=== PATIENT | female | born 1935 | race Caucasian/White ===

== ENCOUNTER 2017-08-19 13:04 | Inpatient (IN) | payer MEDICARE ==
[~2017-08-19] VITALS: Ht 124.4 cm; Wt 72.1 kg
[2017-08-19] VITALS (7 sets, daily range): BP systolic 74–117; BP diastolic 0–86
--- NOTE | ~2017-08-19 | WRIGHTHP ---
[place], [place] PATIENT HISTORY AND PHYSICAL EXAM NAME: ERIC GIBSON [facility] #: [id number] UNIT #: [id number] ROOM: 408 DOCTOR: JAYSHREE MIJARES MD BIRTHDATE: [birth year] DOS: 08/20/2017 HISTORY OF PRESENT ILLNESS: The patient is an 82-year-old female with a past medical history of: 1. Type 2 diabetes mellitus. 2. Obesity. 3. Chronic gouty arthritis. 4. Benign essential hypertension. 5. History of breast cancer and left mastectomy. 6. COPD. The patient presented to the Emergency Department at [facility] with complaints of shortness of breath and chest congestion and feeling unwell. The patient was found to be in atrial fibrillation with rapid ventricular response. The patient was given intravenous verapamil in the Emergency Department and following this she was started on metoprolol. The patient went back into normal sinus rhythm. There were no complaints of any chest pain. No GI or urinary symptoms otherwise. REVIEW OF SYSTEMS: LUNGS: Some increasing shortness of breath, nasal congestion. CARDIOVASCULAR SYSTEM: No chest pains. No palpitations. GASTROINTESTINAL: No nausea, vomiting, diarrhea or constipation. HOME MEDICATIONS: Allopurinol, amlodipine, hydrochlorothiazide, labetalol, lisinopril, metformin and some multivitamins. ALLERGIES: Known allergies to ASPIRIN. FAMILY HISTORY: Noncontributory. PHYSICAL EXAMINATION: GENERAL: Alert, oriented x 3, in no visible distress, except for obesity. VITAL SIGNS: Blood pressure 115/78, heart rate of 78 beats per minute, breathing 16 times per minute, temperature 98.7 degrees Fahrenheit. HEENT AND NECK: Extraocular movements are intact. Sclerae are anicteric. Oral mucosa is moist and clean. No obvious facial weakness. Neck is supple without any lymphadenopathy. No thyromegaly. No JVD. No carotid arterial bruits. LUNGS: Clear to auscultation. No wheezing. No rhonchi. CARDIOVASCULAR SYSTEM: Heart rate is regular in rate and rhythm. S1 and S2 normally audible. No significant murmur or any other abnormal cardiac sounds. ABDOMEN: Soft, nontender. No obvious organomegaly. Bowel sounds are present. No obvious herniation. EXTREMITIES: Without significant cyanosis or edema. Warm to touch. CENTRAL NERVOUS SYSTEM: Alert and oriented x 3. Cranial nerves II-XII are intact. Speech is normal. The patient is able to move all extremities. Normal muscle strength. Deep tendon reflexes are equal on both sides. Plantars were downgoing. IMPRESSION: [place], [place] PATIENT HISTORY AND PHYSICAL EXAM NAME: ERIC GIBSON UNIT #: [id number] ROOM: [facility] DOCTOR: JAYSHREE MIJARES MD BIRTHDATE: [birth year] 1. The patient with acute atrial fibrillation with rapid ventricular response, converted to normal sinus rhythm after she was given verapamil. The patient now maintained on metoprolol and she is refusing anticoagulation, which was started by Cardiology. The patient is asymptomatic as far as palpitations are concerned. No chest pains. No palpitations. No dizziness and no any fainting episodes. 2. Acute exacerbation of chronic obstructive pulmonary disease, apparently from viral infection. The patient's breathing is improving and will be followed closely. 3. Type 2 diabetes mellitus, with reasonably controlled blood sugars. 4. Acute kidney failure, with creatinine elevation to 2.29. 5. Stage 4 acute kidney failure. This could be related to acute atrial fibrillation. The patient is to be hydrated with normal saline and kidney function to be followed. JAYSHREE MIJARES MD CM:HISPHYS:PATIENT HISTORY AND PHYSICAL EXAMINATION [id number] JAYSHREE MIJARES MD 08/20/171907 interface
--- NOTE | ~2017-08-19 | DS ---
[place], [place] DISCHARGE SUMMARY NAME: ERIC GIBSON UNIT #: [id number] ROOM: 408 DOCTOR: JAYSHREE MIJARES MD BIRTHDATE: [birth year] DOS: 08/21/2017 DISCHARGE DIAGNOSES: 1. Acute onset of atrial fibrillation with rapid ventricular response, now the patient is back in normal sinus rhythm and anticoagulated. 2. Type 2 diabetes mellitus. 3. Obesity. 4. Chronic gouty arthritis. 5. Benign essential hypertension. 6. History of breast cancer with left mastectomy. 7. Chronic obstructive pulmonary disease. HOSPITAL COURSE: 1. The patient presented to the Emergency Department with complaints of sinus congestion, runny nose, shortness of breath and cough. The patient was found to have acute exacerbation of COPD, which improved with treatment and the patient is breathing better now. 2. Incidental finding of acute atrial fibrillation with rapid ventricular response, which was initially treated with verapamil intravenously in the Emergency Department, later on metoprolol was added and she converted back to normal sinus rhythm. Echocardiogram was performed, which showed no thrombus and normal left ventricular ejection fraction with slight LVH. The patient has remained in sinus rhythm with controlled heart rates and if cleared by Cardiology, she can be discharged to home today. The patient is quite anxious to go home. 3. Benign essential hypertension with controlled blood pressures now with present treatment. 4. Type 2 diabetes mellitus. The patient remains on metformin. Blood sugars being monitored, treated and controlled. 5. Morbid obesity with BMI of 46.6. The patient working with dietary. 6. Acute kidney failure with elevation of BUN and creatinine to 2.29, apparently related to acute atrial fibrillation. The patient was hydrated and prerenal azotemia apparently resolved with hydration and normal saline. Kidney function is back to normal. DISCHARGE MANAGEMENT: Allopurinol 300 mg daily, apixaban 2.5 mg b.i.d., metoprolol succinate long acting 50 mg daily. Follow up at my office on Saturday in less than a week. The patient to be discharged to home when cleared by Cardiology. [place], [place] DISCHARGE SUMMARY NAME: ERIC GIBSON UNIT #: [id number] ROOM: 408 DOCTOR: JAYSHREE MIJARES MD BIRTHDATE: [birth year] JAYSHREE MIJARES MD CM:ISAEL [id number] JAYSHREE MIJARES MD 08/21/17 1037 interface
[~2017-08-19 13:04] MED LIST: ALLOPURINOL300 MG PO; AQUAZIDE H50 MG PO; AUGMENTIN 875 M1 TA1 PO; AZOR 5-20 MG T1 EACH PO; CENTRUM1 TAB PO; CIPROFLOXACIN500 MG PO; COLCHICINE0.5 MG PO; DARVOCET N 1001 TAB PO; DAYPRO600 M1 PO; HYDR12.5C PO; LABETALOL100 MG PO; MEDROL DOSEPAK4 MG PO; METFORMIN500 MG PO; NORMODYNE100 MG PO; OSCAL,OYSTER S500 MG PO; PERCOCET 325 MG1 TA7 PO; QUINAPRIL40 MG PO; Quinapril HCl40 MG PO; VICODIN 5/500 505 MG PO; VICODIN 500 MG-1 TAB PO; ZITHROMAX Z PA250 MG PO; ZITHROMAX250 MG PO; ZOFRAN4 MG PO
[2017-08-19 13:59] LABS: BASO % 0.4 % (0.0-1.0); HEMATOCRIT 29.6 % (37.0-47.0); HEMOGLOBIN 9.3 g/dl (12.0-16.0); LYMPH # 1.5 10*3/uL (1.3-4.4); LYMPH % 15.5 % (27.0-41.0); MEAN CELL VOLUME 81.3 fl (81.0-99.0); MEAN CORPUSCULAR HGB 25.5 pg (27.0-31.0); MEAN CORPUSCULAR HGB CONC 31.4 g/dl (33.0-37.0); MEAN PLATELET VOLUME 9.6 fl (9.6-12.3); MONO # 1.1 10*3/uL (0.1-1.0); MONO % 11.8 % (3.0-9.0); NEUT # 6.7 10*3/uL (2.3-7.9); PLATELET COUNT AUTOMATED 304 10*3/uL (130-400); RED BLOOD COUNT 3.64 10*6/uL (4.10-5.10); RED CELL DISTRI WIDTH 16.1 % (0-14.5); WHITE BLOOD COUNT 9.4 10*3/uL (4.8-10.8)
[2017-08-19 14:07] LABS: ACT PARTIAL THROMBO TIME 29.7 SECONDS (20.8-31.5)
[2017-08-19 14:14] LABS: ALBUMIN 3.2 gm/dl (3.1-4.5); CREATININE 2.29 mg/dL (0.55-1.02); POTASSIUM 4.5 mmol/L (3.5-5.1); TOTAL PROTEIN 7.6 gm/dL (6.4-8.2); TROPONIN I 0.025 ng/ml (<0.045)
[2017-08-19] MEDS ORDERED: NORVASC5 MG PO (16:24)
[2017-08-19] MEDS ORDERED: LISINOPRIL40 MG PO (16:26)
[2017-08-19] MEDS ORDERED: LISINOPRIL20 MG PO (16:27)
[2017-08-20] VITALS: BP 158/68
[2017-08-20 04:00] VITALS: BP 136/55
[2017-08-20 08:00] VITALS: BP 138/72
[2017-08-20 12:00] VITALS: BP 115/79
[2017-08-20 16:00] VITALS: BP 133/59
[2017-08-20 20:00] VITALS: BP 140/73
[2017-08-21] VITALS: BP 111/52
[2017-08-21 07:11] LABS: CREATININE 1.17 mg/dL (0.55-1.02); POTASSIUM 3.9 mmol/L (3.5-5.1)
[2017-08-21 08:00] VITALS: BP 138/70
[2017-08-21] MEDS ORDERED: ELIQUIS5 M1 PO (10:13)
[2017-08-21] MEDS ORDERED: TOPROL XL50 M1 PO (10:13)
[2017-08-21 12:00] VITALS: BP 129/70
== END 2017-08-21 12:51 | disposition home or self-care (01) | DRG 308 ==
LOC: ED 13:04 → 4E 15:25 → EDHOLD 15:25 → 4E 15:46
PROVIDERS: Internal Medicine; Nurse Practitioner Family
DX: I48.91 Unspecified atrial fibrillation (principal); N17.0 Acute kidney failure with tubular necrosis; J44.1 Chronic obstructive pulmonary disease with (acute) exacerbation; E87.1 Hypo-osmolality and hyponatremia; Z68.42 Body mass index [BMI] 45.0-49.9, adult; E66.01 Morbid (severe) obesity due to excess calories; I10 Essential (primary) hypertension; Z53.29 Procedure and treatment not carried out because of patient's decision for other reasons; E11.9 Type 2 diabetes mellitus without complications; M1A.9XX0 Chronic gout, unspecified, without tophus (tophi); Z79.01 Long term (current) use of anticoagulants; Z85.3 Personal history of malignant neoplasm of breast; Z79.84 Long term (current) use of oral hypoglycemic drugs; Z79.899 Other long term (current) drug therapy; Z88.6 Allergy status to analgesic agent; Z83.3 Family history of diabetes mellitus; Z82.49 Family history of ischemic heart disease and other diseases of the circulatory system

== ENCOUNTER 2017-08-30 02:49 | Inpatient (IN) | payer MEDICARE ==
[~2017-08-30] VITALS: Ht 149.9 cm; Wt 73.5 kg
[2017-08-30] VITALS (10 sets, daily range): BP systolic 90–123; BP diastolic 53–93
--- NOTE | ~2017-08-30 | PR ---
[place], [place] PROGRESS NOTE NAME: ERIC GIBSON UNIT #: [id number] ROOM: 407 DOCTOR: KARISSA IVEY MD BIRTHDATE: [birth year] DOS: 09/01/2017 SUBJECTIVE: The patient still has a cough, but is starting to feel better. The cough has lessened. OBJECTIVE: VITAL SIGNS: Blood pressure is 122/58, pulse of 80, respirations 19, temperature 97.9. LUNGS: Diminished breath sounds. HEART: Regular. ABDOMEN: Obese. EXTREMITIES: Without any edema. LABORATORY DATA: Urine culture showing E. coli, which is sensitive to penicillins. Sputum culture shows MRSA. ASSESSMENT AND PLAN: 1. MRSA pneumonia, extensive. We will require IV antibiotics as an outpatient. 2. Anemia, iron deficiency. P.o. supplementation was ordered, awaiting labs this morning. 3. Chronic obstructive pulmonary disease with acute hypoxic respiratory failure. Again, improving with antibiotics. 4. Urinary tract infection, already on antibiotics. KARISSA IVEY MD CM:PNTRANS [id number] KARISSA IVEY MD 09/01/17 1048 interface
--- NOTE | ~2017-08-30 | PR ---
[place], [place] PROGRESS NOTE NAME: ERIC GIBSON UNIT #: [id number] ROOM: 407 DOCTOR: KARISSA IVEY MD BIRTHDATE: [birth year] DOS: SUBJECTIVE: The patient is feeling good, does not have any new complaints. The cough has subsided. She is less short of breath. The patient states that she gets up and uses the commode, but does not ambulate much. OBJECTIVE: VITAL SIGNS: Blood pressure is 138/75, pulse of 77, respirations 20, temperature 97.6. LUNGS: Diminished breath sounds, scattered rales heard. HEART: Regular. ABDOMEN: Obese, soft. EXTREMITIES: Without any edema. LABORATORY DATA: Shows glucose of 101, BUN 31, creatinine 1.07, sodium 138, potassium 4.2, chloride 103, bicarbonate 26. WBC count is 22.2, hemoglobin 8.0, hematocrit 26.2, platelets 626. ASSESSMENT AND PLAN: 1. Bilateral pneumonia with methicillin-resistant Staphylococcus aureus. The patient is on IV vancomycin. 2. Sepsis pattern ruled out with negative blood cultures. The patient is afebrile and does not appear toxic anymore. 3. Elevated white cell count, possibly steroid effect. 4. Urinary tract infection with Escherichia coli, on IV Zosyn which will be converted to p.o. medications before discharge. 5. Adult failure to thrive. The patient has refused custodial placement, so visiting nurses will be ordered for PT, OT. 6. Acute hypoxic respiratory failure. Continue oxygen supplementation at home. Home assessment will be ordered today. KARISSA IVEY MD CM:PNTRANS [id number] KARISSA IVEY MD 09/04/17 0844 interface
--- NOTE | ~2017-08-30 | WRIGHTHP ---
[place], [place] PATIENT HISTORY AND PHYSICAL EXAM [id number] UNIT #: [id number] ROOM: 407 DOCTOR: KARISSA IVEY MD BIRTHDATE: [birth year] DOS: 08/30/2017 HISTORY OF PRESENT ILLNESS: The patient is an 82 years old, patient of Dr. Noonan, presents with complaints of shortness of breath. The patient was admitted to the hospital on the , discharged on the with atrial fibrillation with rapid ventricular response. The patient states at that time, she also had a cough and runny nose, sinus congestion, headaches, back pain, chest pain, etc. and she was told that she does not have and upon discharge, she was just placed on Eliquis. The patient went home, continued to get increasingly short of breath and presented back to the Emergency Room yesterday. She does complain of pain in the left side of her chest, mostly in the lower part of the ribcage. She does have a cough, which is productive of greenish sputum. Does not have any fever or chills. PAST MEDICAL HISTORY: Significant for: 1. COPD. 2. Recent hospitalization with rapid atrial fibrillation. 3. Flu titer was negative at that time. 4. History of CA breast, status post mastectomy on the left. 5. History of hysterectomy. 6. History of gouty arthritis. MEDICATIONS: She is on currently are, labetalol 100 mg twice a day, Toprol-XL 50 mg daily, metformin 500 b.i.d., Eliquis 2.5 twice a day, allopurinol 300 mg daily. SOCIAL HISTORY: Nonsmoker, does not use any alcohol. PHYSICAL EXAMINATION: GENERAL: She is awake and alert and oriented. VITAL SIGNS: Graph trend shows a pressure 115/55, pulse of 110, respirations 20, temperature 98. LUNGS: Diminished breath sounds, few scattered rhonchi heard. HEART: Irregular, heart rate in the low 100s. ABDOMEN: Obese. EXTREMITIES: Trace edema bilaterally in the feet. ASSESSMENT AND PLAN: 1. The patient who presents with acute onset of shortness of breath, possibly with underlying pneumonia, possible gram negative. A CT of the chest will be done today to see the extent of infection. The patient has an elevated white cell count with normal lactic acid, but meets the sepsis pattern. Blood cultures, sputum cultures, antibiotics have been ordered. 2. Atrial fibrillation with rapid ventricular response. Readjust medications. She is right now on Cardizem drip for rapid ventricular response. We will restart the Eliquis and also the low dose of Toprol. We will discontinue the amlodipine, which could be causing the leg edema and the allopurinol, dosage will be cut back to 100 mg daily. Labetalol will be discontinued, she is already on another beta concetta. 3. Adult failure to thrive, may benefit from PT, OT consultation when the [place], [place] PATIENT HISTORY AND PHYSICAL EXAM NAME: ERIC GIBSON UNIT #: [id number] ROOM: 407 DOCTOR: KARISSA IVEY MD BIRTHDATE: [birth year] patient is also improved and able to walk. 4. Acute hypoxic respiratory failure, may need to consider oxygen for this patient for home usage. We will evaluate closer to discharge. 5. Anemia. Hemoglobin 7.7. Iron and B12 levels will be ordered today. KARISSA IVEY MD CM:HISPHYS:PATIENT HISTORY AND PHYSICAL EXAMINATION 8 7 KARISSA IVEY MD 08/30/17 0936 interface
--- NOTE | ~2017-08-30 | PR ---
[place], [place] PROGRESS NOTE NAME: ERIC GIBSON UNIT #: [id number] ROOM: 407 DOCTOR: KARISSA IVEY MD BIRTHDATE: [birth year] DOS: 09/03/2017 SUBJECTIVE: The patient is feeling good, does not have any complaints. Her cough is improving. She denies having any chest pains, palpitations or shortness of breath. OBJECTIVE: GENERAL: She is awake and alert and oriented. VITAL SIGNS: Graphic trend shows a pressure of 145/69, pulse of 92, respirations 20, temperature 97.3. LUNGS: Diminished breath sounds, scattered wheezes and rhonchi heard. HEART: Regular. ABDOMEN: Obese. EXTREMITIES: Without any edema. ASSESSMENT AND PLAN: 1. MRSA pneumonia. The patient is on IV vancomycin. A PICC line was placed and the patient plans to go home with IV antibiotics tomorrow. 2. Acute kidney injury. IV fluids were given, awaiting labs again for tomorrow. 3. Anemia, iron deficiency. Iron infusions as well as iron p.o. supplements were given, awaiting the CBC in the morning. 4. Adult failure to thrive. She did not want to go to a rehab. The plan is to discharge with visiting nurses, PT, OT to home and IV antibiotics. KARISSA IVEY MD CM:PNTRANS [phone] KARISSA IVEY MD 09/03/17 1312 interface
--- NOTE | ~2017-08-30 | PR ---
[place], [place] PROGRESS NOTE NAME: ERIC GIBSON UNIT #: [id number] ROOM: 407 DOCTOR: KARISSA IVEY MD BIRTHDATE: [birth year] DOS: 08/31/2017 SUBJECTIVE: The patient continues to have a cough and shortness of breath. States that she is a little bit better than yesterday. OBJECTIVE EXAMINATION: GENERAL: She is awake and alert and oriented. VITAL SIGNS: Graphic trend shows pressure of 122/52, pulse of 90, respirations 20, temperature 97.9. LUNGS: Diminished breath sounds, few scattered rhonchi and rales. HEART: Regular. ABDOMEN: Obese. EXTREMITIES: Without any edema. ASSESSMENT AND PLAN: 1. The patient who presents with acute hypoxic respiratory failure with bilateral pneumonia involving both left and right lung tejada with consolidation on multiple intravenous antibiotics. Improvement will be slow. We will add intravenous vancomycin until we get the final culture results. 2. Benign hypertension, controlled. 3. Iron deficiency anemia. Iron supplements will be ordered. The patient states that she has had colonoscopies in the past. We will avoid it for right now. 4. Atrial fibrillation with rapid ventricular response. The patient's heart rate has slowed down with increased Toprol dosage and already on low dose Eliquis. 5. Hypomagnesemia. Supplementation IV was given yesterday, p.o. will be started today. KARISSA IVEY MD CM:PNTRANS [phone] KARISSA IVEY MD 08/31/17 0853 interface
--- NOTE | ~2017-08-30 | DS ---
[place], [place] DISCHARGE SUMMARY NAME: ERIC GIBSON UNIT #: [id number] ROOM: 407 DOCTOR: KARISSA IVEY MD BIRTHDATE: [birth year] DOS: 09/04/2017 DIAGNOSES: 1. Bilateral pneumonia with consolidation with methicillin-resistant Staphylococcus aureus of the sputum. 2. Acute hypoxic respiratory failure. 3. Atrial fibrillation with rapid ventricular response. 4. Type 2 diabetes mellitus, non-insulin dependent. 5. Benign hypertension. 6. Adult failure to thrive, refuses chcf placement. 7. Elevated white cell count, possibly steroid effect. 8. Chronic obstructive pulmonary disease with acute exacerbation. 9. Iron deficiency anemia DISCHARGE MEDICATIONS: Xopenex 0.63 q. 8 hours, iron 150 daily, metoprolol 50 b.i.d., diltiazem 180 daily, prednisone tapering dose down to 5 mg continuous, allopurinol 100 daily, Ceftin 250 twice a day, metformin 500 b.i.d., Eliquis 2.5 b.i.d., vancomycin 750 IV daily for [address] Noonan to follow vancomycin peak and trough and visiting nurses advised to do CBC and a basic every other day. PT/OT consultation for home. HOSPITAL COURSE: The patient is 82-year-old, known to me from previous admissions. The patient comes in to the Emergency with cough and shortness of breath. She was just discharged from the hospital just a few days prior for an admission at that time was for rapid ventricular response of AFib. The patient was found again to be in AFib with rapid ventricular response during this admission also. The patient was admitted. After admission, she was noted to have an increased cough. Cough was productive of scant amounts of greenish sputum. Chest x-ray done in the Emergency Room showed multifocal pneumonia. The patient's white cell count was elevated at 16.6 with hemoglobin of 7.7. After admission, the patient had a close followup of her blood count. She did not require any transfusion, but iron was quite low, iron supplements both IV and p.o. were started. The patient was encouraged to have a colonoscopy, but she refused. A CT of the chest was done, which showed bilateral pneumonia with consolidation. The patient was already started on multiple antibiotics including vancomycin for possible nosocomial pneumonia. Sputum cultures and blood cultures were sent. Blood cultures have shown no bacterial growth. Sputum cultures grew MRSA, by the time the patient was already on vancomycin. White cell count was trending down, but the patient appeared to be quite hypoxic with bronchospasm, so IV steroids were added. This did make the white cell count go up and it has remained high, but the patient has improved steadily over the last several days. Chest x-ray continues to show improvement in the pneumonia, but the pneumonia still is persistent. She also had acute kidney injury, was given IV fluids in the beginning. Kidney functions have improved and she is now down to GFR of 49, which is stage III kidney disease. Her blood count has improved to 8 with iron supplementation. [place], [place] DISCHARGE SUMMARY NAME: ERIC GIBSON UNIT #: [id number] ROOM: 407 DOCTOR: KARISSA IVEY MD BIRTHDATE: [birth year] Platelet count is elevated and thrombocytosis is most likely from iron deficiency anemia. The patient was encouraged to go to rehab for continued IV antibiotics. The PICC line was placed. The patient has refused and will not go to rehabilitation, so social Service was consulted and home IV antibiotics were arranged. PT/OT will be arranged for home. Her diet is liberal. KARISSA IVEY MD CM:DISCHARG [phone] KARISSA IVEY MD 09/04/17 09 interface
--- NOTE | ~2017-08-30 | PR ---
[place], [place] PROGRESS NOTE NAME: ERIC GIBSON UNIT #: [id number] ROOM: 407 DOCTOR: KARISSA IVEY MD BIRTHDATE: [birth year] DOS: SUBJECTIVE: The patient states that she is finally feeling better. Her cough and shortness of breath have improved. OBJECTIVE: VITAL SIGNS: Blood pressure is 140/69, pulse of 66, respirations 18, afebrile. LUNGS: Diminished breath sounds. HEART: Regular. ABDOMEN: Obese. EXTREMITIES: Without any edema. ASSESSMENT AND PLAN: 1. MRSA pneumonia on IV vancomycin. PICC line will be placed. Social service to arrange for discharge planning on IV antibiotics. 2. Urinary tract infection with Escherichia coli, on Zosyn, which is being continued. 3. Acute kidney injury. We will continue to follow closely on the vancomycin levels. 4. Iron deficiency anemia, refuses endoscopy, colonoscopy. Iron IV and p.o. has been started. 5. Adult failure to thrive. Recommended skilled patient, she is refusing that also. KARISSA IVEY MD CM:PNTRANS [phone] KARISSA IVEY MD 09/02/17 1006 interface
--- NOTE | ~2017-08-30 | PR ---
[place], [place] PROGRESS NOTE NAME: ERIC GIBSON UNIT #: [id number] ROOM: 407 DOCTOR: KELLEE STEVENS MD BIRTHDATE: [birth year] DOS: 08/31/2017 REASON FOR VISIT: Atrial fibrillation. SUBJECTIVE: The patient went into atrial fib with rapid ventricular rate today and she was started back on IV Cardizem. She denies any chest pain or palpitations, still short of breath from pulmonary conditions. No dizziness, no edema, no syncope, no nausea or vomiting, no headaches. REVIEW OF SYSTEMS: Review of the 8 systems negative except as mentioned above. RHYTHM STRIPS: The patient's atrial fibrillation with rates 80-90. PHYSICAL EXAMINATION: VITAL SIGNS: Blood pressure 139/54, pulse 90, respiratory rate 22. GENERAL: Alert, comfortable, in no acute distress except mildly short of breath while talking. HEENT: Pupils are round and equal. No jaundice. Tongue was moist and pharynx clear. NECK: Supple. The patient has elevated neck veins. No carotid bruit. CHEST: Symmetrical, nontender. LUNGS: A few scattered rhonchi, diminished at bases. HEART: Irregularly irregular, grade 1/6 systolic murmur. ABDOMEN: Benign, nontender. Bowel sounds normal. EXTREMITIES: Showed 1+ bilaterally. Distal pulses are palpable. SKIN: Warm and dry. NEUROLOGIC: The patient is alert and oriented. No focal neurologic deficit. Medications and allergies reviewed. LABORATORY DATA: Include hemoglobin 7.7, WBC 18,000. IMPRESSION: 1. Atrial fibrillation with rapid ventricular rate, currently controlled on intravenous Cardizem. 2. Anemia. 3. Pneumonia with sepsis. 4. Hypertension. 5. Chronic obstructive pulmonary disease exacerbation. RECOMMENDATIONS: 1. Continue current medications. 2. Wean off IV Cardizem and continue her p.o. medication. 3. Continue to watch her heart rate and blood pressures as well as hemoglobin. There is no family at bedside at the time of my examination. Continue her Eliquis for anticoagulation. [place], [place] PROGRESS NOTE NAME: ERIC GIBSON UNIT #: [id number] ROOM: 407 DOCTOR: KELLEE STEVENS MD BIRTHDATE: [birth year] KELLEE STEVENS MD CM:PNTRANS [phone] KELLEE STEVENS MD 08/31/17 2343 interface
[~2017-08-30 02:49] MED LIST changes: +ELIQUIS5 M1 PO; +LISINOPRIL20 MG PO; +LISINOPRIL40 MG PO; +NORVASC5 MG PO; +TOPROL XL50 M1 PO
[2017-08-30 03:22] LABS: HEMATOCRIT 25.3 % (37.0-47.0); HEMOGLOBIN 7.7 g/dl (12.0-16.0); MEAN CELL VOLUME 81.6 fl (81.0-99.0); MEAN CORPUSCULAR HGB 24.8 pg (27.0-31.0); MEAN CORPUSCULAR HGB CONC 30.4 g/dl (33.0-37.0); PLATELET COUNT AUTOMATED 525 10*3/uL (130-400); RED CELL DISTRI WIDTH 15.9 % (0-14.5); WHITE BLOOD COUNT 16.6 10*3/uL (4.8-10.8)
[2017-08-30 03:30] LABS: INTERNATIONAL NORM RATIO 1.3 (2.0-3.5)
[2017-08-30 03:40] LABS: ALBUMIN 2.1 gm/dl (3.1-4.5); ALKALINE PHOSPHATASE 158 U/L (45-117); BUN 42 mg/dl (7-24); CHLORIDE 101 mmol/L (98-107); CREATININE 1.49 mg/dL (0.55-1.02); POTASSIUM 4.2 mmol/L (3.5-5.1); SGOT/AST 41 IU/L (3-35); SGPT/ALT 36 U/L (12-78); SODIUM 131 mmol/L (136-145); TOTAL PROTEIN 7.6 gm/dL (6.4-8.2)
[2017-08-30 03:42] LABS: PLATELET SUFFICIENCY HIGH (NORMAL); TOTAL CELLS COUNTED 100 #CELLS
[2017-08-30 03:43] LABS: TROPONIN I < 0.015 ng/ml (<0.045)
[2017-08-30] MEDS ORDERED: LABETALOL HCL100 MG PO (03:46)
[2017-08-30] MEDS ORDERED: AMLODIPINE BESYL5 MG PO (03:47)
[2017-08-30 09:13] LABS: BILIRUBIN 1+ (NEGATIVE); BLOOD 2+ (NEGATIVE); CLARITY CLOUDY (CLEAR); COLOR YELLOW (YELLOW); GLUCOSE NEGATIVE (NEGATIVE); KETONE NEGATIVE (NEGATIVE); LEUKO ESTERASE 2+ (NEGATIVE); NITRITE POSITIVE (NEGATIVE); PH 5.5 (5.0-9.0); SPECIFIC GRAVITY 1.015 (1.005-1.030); UROBILINOGEN 0.2 E.U./dl (0.2-1.0)
[2017-08-30 09:27] LABS: BACTERIA 4+; COARSE GRANULAR CAST 15-20; WBC 31-40 wbc/hpf (0-5)
[2017-08-31] VITALS: BP 122/52
[2017-08-31 06:19] LABS: HEMATOCRIT 24.3 % (37.0-47.0); HEMOGLOBIN 7.7 g/dl (12.0-16.0); MEAN CELL VOLUME 80.7 fl (81.0-99.0); MEAN CORPUSCULAR HGB 25.6 pg (27.0-31.0); MEAN CORPUSCULAR HGB CONC 31.7 g/dl (33.0-37.0); MEAN PLATELET VOLUME 10.1 fl (9.6-12.3); NUCLEATED RED BLOOD CELL 0.1 % (0.0-0.0); PLATELET COUNT AUTOMATED 599 10*3/uL (130-400); RED BLOOD COUNT 3.01 10*6/uL (4.10-5.10); WHITE BLOOD COUNT 18.3 10*3/uL (4.8-10.8)
[2017-08-31 06:31] LABS: CREATININE 1.39 mg/dL (0.55-1.02); POTASSIUM 3.7 mmol/L (3.5-5.1)
[2017-08-31 07:23] LABS: BURR CELLS MODERATE; PLATELET SUFFICIENCY HIGH (NORMAL); TOTAL CELLS COUNTED 100 #CELLS; TOXIC GRANULATION SLIGHT
[2017-08-31 08:00] VITALS: BP 136/60
[2017-08-31 12:00] VITALS: BP 139/54
[2017-08-31 16:00] VITALS: BP 134/86
[2017-08-31 20:00] VITALS: BP 119/58
[2017-09-01] VITALS: BP 122/58
[2017-09-01 08:00] VITALS: BP 114/82
[2017-09-01 12:00] VITALS: BP 123/67
[2017-09-01 16:00] VITALS: BP 136/61
[2017-09-01 20:00] VITALS: BP 159/77
[2017-09-02] VITALS (7 sets, daily range): BP systolic 137–151; BP diastolic 61–79
[2017-09-02 06:03] LABS: HEMATOCRIT 25.4 % (37.0-47.0); HEMOGLOBIN 7.6 g/dl (12.0-16.0); MEAN CELL VOLUME 82.5 fl (81.0-99.0); MEAN CORPUSCULAR HGB 24.7 pg (27.0-31.0); MEAN CORPUSCULAR HGB CONC 29.9 g/dl (33.0-37.0); NUCLEATED RED BLOOD CELL 0.2 % (0.0-0.0); PLATELET COUNT AUTOMATED 662 10*3/uL (130-400); RED BLOOD COUNT 3.08 10*6/uL (4.10-5.10); RED CELL DISTRI WIDTH 16.4 % (0-14.5); WHITE BLOOD COUNT 20.2 10*3/uL (4.8-10.8)
[2017-09-02 06:24] LABS: CREATININE 1.4 mg/dL (0.55-1.02); POTASSIUM 4.3 mmol/L (3.5-5.1)
[2017-09-02 06:56] LABS: OVALOCYTES FEW; PLATELET SUFFICIENCY HIGH (NORMAL); POLYCHROMASIA SLIGHT; TOTAL CELLS COUNTED 100 #CELLS; TOXIC GRANULATION SLIGHT
[2017-09-03] VITALS: BP 145/69
[2017-09-03 08:00] VITALS: BP 147/79
[2017-09-03 12:00] VITALS: BP 148/74
[2017-09-03 16:00] VITALS: BP 143/73
[2017-09-03 20:00] VITALS: BP 155/77
[2017-09-04] VITALS: BP 138/75
[2017-09-04 06:19] LABS: HEMATOCRIT 26.2 % (37.0-47.0); MEAN CELL VOLUME 83.2 fl (81.0-99.0); MEAN CORPUSCULAR HGB 25.4 pg (27.0-31.0); MEAN CORPUSCULAR HGB CONC 30.5 g/dl (33.0-37.0); MEAN PLATELET VOLUME 9.6 fl (9.6-12.3); NUCLEATED RED BLOOD CELL 0.1 10*3/uL (0.0-0.0); NUCLEATED RED BLOOD CELL 0.4 % (0.0-0.0); PLATELET COUNT AUTOMATED 626 10*3/uL (130-400); RED BLOOD COUNT 3.15 10*6/uL (4.10-5.10); RED CELL DISTRI WIDTH 16.8 % (0-14.5); WHITE BLOOD COUNT 22.2 10*3/uL (4.8-10.8)
[2017-09-04 06:45] LABS: CREATININE 1.07 mg/dL (0.55-1.02); POTASSIUM 4.2 mmol/L (3.5-5.1)
[2017-09-04 07:02] LABS: TOTAL CELLS COUNTED 100 #CELLS
[2017-09-04 07:03] LABS: PLATELET SUFFICIENCY HIGH (NORMAL); POLYCHROMASIA SLIGHT; TARGET CELLS FEW
[2017-09-04 08:00] VITALS: BP 134/69
[2017-09-04] MEDS ORDERED: TOPROL XL50 M1 PO (08:19)
[2017-09-04] MEDS ORDERED: PREDNISONE10 MG PO (08:19)
[2017-09-04] MEDS ORDERED: DILTIAZEM HYDR180 M2 PO (08:19)
[2017-09-04] MEDS ORDERED: POLY-IRON 150150 MG PO (08:19)
[2017-09-04] MEDS ORDERED: ALLOPURINOL100 MG PO (08:19)
[2017-09-04] MEDS ORDERED: Xopenex NEB (08:19)
[2017-09-04] MEDS ORDERED: CEFUROXIME AXE250 MG PO (08:32)
[2017-09-04 12:00] VITALS: BP 151/80
[2017-09-04 16:00] VITALS: BP 146/76
== END 2017-09-04 16:35 | disposition home health service (06) | DRG 177 ==
LOC: ED 02:49 → EDHOLD 04:41 → 4E 04:41
PROVIDERS: Emergency Medicine; Internal Medicine
PROC: 02HV33Z Insertion of Infusion Device into Superior Vena Cava, Percutaneous Approach (ICD-10-PCS; principal; 2017-09-02)
DX: J15.212 Pneumonia due to Methicillin resistant Staphylococcus aureus (principal); J96.01 Acute respiratory failure with hypoxia; N17.9 Acute kidney failure, unspecified; E44.0 Moderate protein-calorie malnutrition; J44.1 Chronic obstructive pulmonary disease with (acute) exacerbation; I48.0 Paroxysmal atrial fibrillation; E83.42 Hypomagnesemia; D50.9 Iron deficiency anemia, unspecified; D47.3 Essential (hemorrhagic) thrombocythemia; N39.0 Urinary tract infection, site not specified; N18.3 Chronic kidney disease, stage 3 (moderate); B96.20 Unspecified Escherichia coli [E. coli] as the cause of diseases classified elsewhere; M10.9 Gout, unspecified; R62.7 Adult failure to thrive; E66.9 Obesity, unspecified; R74.0 Nonspecific elevation of levels of transaminase and lactic acid dehydrogenase [LDH]; I12.9 Hypertensive chronic kidney disease with stage 1 through stage 4 chronic kidney disease, or unspecified chronic kidney disease; Z68.32 Body mass index [BMI] 32.0-32.9, adult; Z79.01 Long term (current) use of anticoagulants; Z85.3 Personal history of malignant neoplasm of breast; Z79.84 Long term (current) use of oral hypoglycemic drugs; Z79.899 Other long term (current) drug therapy; Z90.710 Acquired absence of both cervix and uterus; Z90.79 Acquired absence of other genital organ(s); Z90.722 Acquired absence of ovaries, bilateral; Z90.12 Acquired absence of left breast and nipple; Z88.6 Allergy status to analgesic agent; Z83.3 Family history of diabetes mellitus; Z82.49 Family history of ischemic heart disease and other diseases of the circulatory system; Y95 Nosocomial condition

== ENCOUNTER → 2018-11-11 | Outpatient (CLI) | payer MEDICARE ==
[~2018-11-11] MED LIST changes: +ALLOPURINOL100 MG PO; +AMLODIPINE BESYL5 MG PO; +CEFUROXIME AXE250 MG PO; +CITRUS CALCIUM1 EACH PO; +DILTIAZEM HYDR180 M2 PO; +HYDROCHLOROTH12.5 M2 PO; +LABETALOL HCL100 MG PO; +METOPROLOL SUCC50 M1 PO; +POLY-IRON 150150 MG PO; +PREDNISONE10 MG PO; +Xopenex NEB; +ZESTRIL20 MG PO; +ZYLOPRIM300 MG PO
== END | disposition home or self-care (01) ==
LOC: LAB 10:15
DX: E11.9 Type 2 diabetes mellitus without complications (principal)

== ENCOUNTER → 2019-04-14 | Outpatient (CLI) | payer MEDICARE ==
[2019-04-14 12:24] LABS: BASO # 0.1 10*3/uL (0.0-0.1); BASO % 0.6 % (0.0-1.0); EOS # 0.2 10*3/uL (0.0-0.4); EOS % 1.7 % (1.0-4.0); HEMATOCRIT 37.7 % (37.0-47.0); HEMOGLOBIN 11.3 g/dl (12.0-16.0); LYMPH # 4.1 10*3/uL (1.3-4.4); LYMPH % 35.3 % (27.0-41.0); MEAN CELL VOLUME 98.2 fl (81.0-99.0); MEAN CORPUSCULAR HGB 29.4 pg (27.0-31.0); MEAN PLATELET VOLUME 10.3 fl (9.6-12.3); MONO # 1.1 10*3/uL (0.1-1.0); MONO % 9.5 % (3.0-9.0); NEUT % 52.5 % (47.0-73.0); PLATELET COUNT AUTOMATED 353 10*3/uL (130-400); RED BLOOD COUNT 3.84 10*6/uL (4.10-5.10); RED CELL DISTRI WIDTH 15.9 % (0-14.5); WHITE BLOOD COUNT 11.5 10*3/uL (4.8-10.8)
[2019-04-14 12:49] LABS: ALBUMIN 3.4 gm/dl (3.1-4.5); CREATININE 1.28 mg/dL (0.55-1.02); FREE T4 1.07 ng/dl (0.76-1.46); POTASSIUM 4.5 mmol/L (3.5-5.1); TOTAL PROTEIN 8.3 gm/dL (6.4-8.2); URIC ACID 2.9 mg/dL (2.6-6.0)
[2019-04-14 12:54] LABS: THYROID STIM HORMONE (HS) 3.6 uIU/ml (0.358-4.75)
[2019-04-14 12:56] LABS: VITAMIN D, 25-HYDROXY 36.1 ng/mL (30-100)
== END | disposition home or self-care (01) ==
LOC: LAB 11:14
PROVIDERS: Internal Medicine
DX: I10 Essential (primary) hypertension (principal); E11.9 Type 2 diabetes mellitus without complications; D51.9 Vitamin B12 deficiency anemia, unspecified; I48.20 Chronic atrial fibrillation, unspecified; D52.9 Folate deficiency anemia, unspecified; E55.9 Vitamin D deficiency, unspecified; Z79.899 Other long term (current) drug therapy

== ENCOUNTER → 2020-03-23 | Outpatient (CLI) | payer MEDICARE ==
[2020-03-23 10:33] LABS: BASO # 0.1 10*3/uL (0.0-0.1); BASO % 0.7 % (0.0-1.0); EOS # 0.2 10*3/uL (0.0-0.4); EOS % 1.5 % (1.0-4.0); HEMATOCRIT 38.2 % (37.0-47.0); LYMPH # 3.5 10*3/uL (1.3-4.4); LYMPH % 34.2 % (27.0-41.0); MEAN CELL VOLUME 92.5 fl (81.0-99.0); MEAN CORPUSCULAR HGB 27.4 pg (27.0-31.0); MEAN CORPUSCULAR HGB CONC 29.6 g/dl (33.0-37.0); MEAN PLATELET VOLUME 9.8 fl (9.6-12.3); MONO # 0.8 10*3/uL (0.1-1.0); NEUT # 5.6 10*3/uL (2.3-7.9); NEUT % 55.2 % (47.0-73.0); PLATELET COUNT AUTOMATED 325 10*3/uL (130-400); RED BLOOD COUNT 4.13 10*6/uL (4.10-5.10); RED CELL DISTRI WIDTH 15.5 % (0-14.5); WHITE BLOOD COUNT 10.2 10*3/uL (4.8-10.8)
[2020-03-23 11:04] LABS: ALBUMIN 3.4 gm/dl (3.1-4.5); CREATININE 1.15 mg/dL (0.55-1.02); FREE T4 1.3 ng/dl (0.76-1.46); POTASSIUM 4.4 mmol/L (3.5-5.1); TOTAL PROTEIN 7.9 gm/dL (6.4-8.2); URIC ACID 2.8 mg/dL (2.6-6.0)
[2020-03-23 11:09] LABS: THYROID STIM HORMONE (HS) 3.77 uIU/ml (0.358-4.75)
[2020-03-23 11:23] LABS: VITAMIN D, 25-HYDROXY 65.5 ng/mL (30-100)
== END | disposition home or self-care (01) ==
LOC: LAB 03-22 11:01
PROVIDERS: ATTEND Internal Medicine
DX: D52.9 Folate deficiency anemia, unspecified (principal); D51.9 Vitamin B12 deficiency anemia, unspecified; R70.0 Elevated erythrocyte sedimentation rate; R79.82 Elevated C-reactive protein (CRP); R74.8 Abnormal levels of other serum enzymes; R74.9 Abnormal serum enzyme level, unspecified; J44.1 Chronic obstructive pulmonary disease with (acute) exacerbation; R53.81 Other malaise; E55.9 Vitamin D deficiency, unspecified

== ENCOUNTER 2021-03-25 06:13 | Inpatient (IN) | payer MEDICARE ==
[~2021-03-25] VITALS: Ht 150 cm; Wt 72.7 kg
[2021-03-25] VITALS (7 sets, daily range): BP systolic 82–147; BP diastolic 48–92
[2021-03-25 07:14] LABS: BASO % 0.3 % (0.0-1.0); EOS # 0.1 10*3/uL (0.0-0.4); EOS % 0.5 % (1.0-4.0); HEMATOCRIT 32.6 % (37.0-47.0); LYMPH # 2.1 10*3/uL (1.3-4.4); LYMPH % 17.5 % (27.0-41.0); MEAN CELL VOLUME 95.6 fl (81.0-99.0); MEAN CORPUSCULAR HGB 28.7 pg (27.0-31.0); MEAN CORPUSCULAR HGB CONC 30.1 g/dl (33.0-37.0); MEAN PLATELET VOLUME 10.4 fl (9.6-12.3); MONO # 1.2 10*3/uL (0.1-1.0); MONO % 9.8 % (3.0-9.0); NEUT # 8.5 10*3/uL (2.3-7.9); NEUT % 71.5 % (47.0-73.0); PLATELET COUNT AUTOMATED 334 10*3/uL (130-400); RED BLOOD COUNT 3.41 10*6/uL (4.10-5.10); RED CELL DISTRI WIDTH 15.9 % (0-14.5); WHITE BLOOD COUNT 11.9 10*3/uL (4.8-10.8)
[2021-03-25 07:32] LABS: ACT PARTIAL THROMBO TIME 30.5 SECONDS (20.0-32.1); INTERNATIONAL NORM RATIO 1.2 (2.0-3.5)
[2021-03-25 07:39] LABS: ALBUMIN 3.1 gm/dl (3.1-4.5); ALKALINE PHOSPHATASE 74 U/L (45-117); BUN 23 mg/dl (7-24); CHLORIDE 103 mmol/L (98-107); CREATININE 1.13 mg/dL (0.55-1.02); POTASSIUM 4.2 mmol/L (3.5-5.1); SGOT/AST 16 IU/L (3-35); SGPT/ALT 22 U/L (12-78); SODIUM 135 mmol/L (136-145); TOTAL PROTEIN 7.5 gm/dL (6.4-8.2)
[2021-03-25 07:43] LABS: TROPONIN I < 0.015 ng/ml (<0.045)
[2021-03-26] VITALS (7 sets, daily range): BP systolic 98–124; BP diastolic 54–78
[2021-03-26 05:26] LABS: CREATININE 1.47 mg/dL (0.55-1.02); POTASSIUM 3.8 mmol/L (3.5-5.1)
[2021-03-26 06:08] LABS: HEMATOCRIT 32.4 % (37.0-47.0); MEAN CELL VOLUME 94.7 fl (81.0-99.0); MEAN CORPUSCULAR HGB 28.7 pg (27.0-31.0); MEAN CORPUSCULAR HGB CONC 30.2 g/dl (33.0-37.0); MEAN PLATELET VOLUME 10.7 fl (9.6-12.3); PLATELET COUNT AUTOMATED 331 10*3/uL (130-400); RED BLOOD COUNT 3.42 10*6/uL (4.10-5.10); RED CELL DISTRI WIDTH 15.9 % (0-14.5); WHITE BLOOD COUNT 16.1 10*3/uL (4.8-10.8)
[2021-03-26 07:54] LABS: PLATELET SUFFICIENCY NORMAL (NORMAL); TOTAL CELLS COUNTED 100 #CELLS
[2021-03-27] VITALS: BP 96/48
[2021-03-27 05:59] VITALS: BP 106/61
[2021-03-27 06:10] LABS: CREATININE 1.28 mg/dL (0.55-1.02); POTASSIUM 3.5 mmol/L (3.5-5.1)
[2021-03-27 08:56] VITALS: BP 109/58
[2021-03-27 20:00] VITALS: BP 110/88
[2021-03-28] VITALS: BP 85/42
[2021-03-28 07:26] LABS: CREATININE 1.76 mg/dL (0.55-1.02); POTASSIUM 3.4 mmol/L (3.5-5.1)
[2021-03-28 08:00] VITALS: BP 122/74
[2021-03-28 12:00] VITALS: BP 117/50
[2021-03-28 16:00] VITALS: BP 98/64
[2021-03-28 20:00] VITALS: BP 103/65
[2021-03-29] VITALS: BP 88/52
[2021-03-29 06:02] VITALS: BP 112/68
[2021-03-29 08:00] VITALS: BP 80/57
[2021-03-29 12:00] VITALS: BP 102/54
[2021-03-29 16:00] VITALS: BP 124/51
[2021-03-29 20:00] VITALS: BP 135/56
[2021-03-30] VITALS: BP 109/50
[2021-03-30 00:43] VITALS: BP 109/56
[2021-03-30 06:53] LABS: CREATININE 1.51 mg/dL (0.55-1.02); POTASSIUM 3.9 mmol/L (3.5-5.1)
[2021-03-30 08:00] VITALS: BP 102/57
[2021-03-30] MEDS ORDERED: BUMETANIDE0.5 MG PO (09:45)
[2021-03-30] MEDS ORDERED: LISINOPRIL2.5 MG PO (09:45)
[2021-03-30] MEDS ORDERED: METOPROLOL SUCC50 M1 PO (09:45)
[2021-03-30] MEDS ORDERED: CARDIZEM CD120 M2 PO (10:06)
[2021-03-30 12:00] VITALS: BP 102/63
== END 2021-03-30 16:24 | DRG 291 ==
LOC: ED 06:13 → 4E 09:00 → EDHOLD 09:00 → 4E 03-27 21:08
PROVIDERS: Emergency Medicine; ADMIT Internal Medicine; ATTEND Internal Medicine
DX: I13.0 Hypertensive heart and chronic kidney disease with heart failure and stage 1 through stage 4 chronic kidney disease, or unspecified chronic kidney disease (principal); N17.0 Acute kidney failure with tubular necrosis; I50.33 Acute on chronic diastolic (congestive) heart failure; I48.21 Permanent atrial fibrillation; J96.10 Chronic respiratory failure, unspecified whether with hypoxia or hypercapnia; Z20.822 Contact with and (suspected) exposure to COVID-19; R62.7 Adult failure to thrive; E11.42 Type 2 diabetes mellitus with diabetic polyneuropathy; R26.2 Difficulty in walking, not elsewhere classified; E11.22 Type 2 diabetes mellitus with diabetic chronic kidney disease; N18.32 Chronic kidney disease, stage 3b; E66.01 Morbid (severe) obesity due to excess calories; I95.9 Hypotension, unspecified; E87.6 Hypokalemia; J44.9 Chronic obstructive pulmonary disease, unspecified; M1A.9XX0 Chronic gout, unspecified, without tophus (tophi); D50.0 Iron deficiency anemia secondary to blood loss (chronic); Z90.12 Acquired absence of left breast and nipple; Z68.35 Body mass index [BMI] 35.0-35.9, adult; Z79.01 Long term (current) use of anticoagulants; Z88.6 Allergy status to analgesic agent